=== PATIENT | male | born 1980 | race American Indian/Alaskan Native ===

== ENCOUNTER 2022-07-15 03:38 | Emergency (ER) | payer OTHER ==
[2022-07-15] MEDS ORDERED: ONDANSETRON 4 MG/2 ML INJ IV ONE (06:23)
[2022-07-15] MEDS ORDERED: FAMOTIDINE 20 MG/2 ML INJ IV ONE (06:23)
[2022-07-15] MEDS ORDERED: KETOROLAC 30 MG/1 ML INJ IV ONE (06:23)
[2022-07-15] MEDS ORDERED: SODIUM CHLORIDE 0.9% 1000 ML 1,000 ML IV ONE (06:23)
--- NOTE | 2022-07-15 06:26 | Emergency Department Report ---
HPI - General Chief Complaint: Abdominal Pain PUI?: No Time Seen by Provider: 07/15/22 06:19 - HPI HPI: 42yo M p/w b/l lower abdominal pain. Pt reports that he has a hernia and states "it popped out and I tried to push it back in. But when it popped out, that's when it started hurting." He reports having experienced nausea and vomiting. Pain to his abdomen is bilateral lower abdominal pain, intermittent, cramping. He denies any surgeries to his abdomen. Last bowel movement was 1 day ago. He states it was normal. No melena hematochezia or hematemesis. No testicular pain or penile discharge. No UTI symptoms. Pain states he had "just 1 glass of wine" last night when his pain began. Pain currently 6 out of 10. ED Past Medical Hx - Past Medical History Previous Medical History?: No - Surgical History Past Surgical History?: No - Social History Smoking Status: Current Every Day Smoker Substance Use Type: Alcohol - Medications Home Medications: Home Medications Medication Instructions Recorded Confirmed Last Taken Type Ondansetron [Zofran Odt] 4 mg PO Q8HR 3 Days #12 tab.rapdis 07/15/22 Unknown Rx ED Review of Systems ROS: Stated complaint: AB PAIN Other details as noted in HPI Comment: All other systems reviewed and negative Physical Exam - Physical Exam Vital Signs: Vital Signs 07/15/22 07/15/22 03:39 05:28 Temperature 97.8 F Pulse Rate 94 H 89 Respiratory 18 16 Rate Blood Pressure 154/96 Blood Pressure 129/73 [Left] O2 Sat by Pulse 99 98 Oximetry General: Gen: pt is well appearing, no acute distress, patient observed sleeping on stretcher, easily arousable, no drooling no stridor no respiratory distress, breathing unlabored, nontoxic-appearing HEENT: Normocephalic atraumatic pupils equally round and reactive to light extraocular muscles intact sclera anicteric Neck: Full range of motion, no midline spinal tenderness palpation, no JVD, no carotid bruits, no nuchal rigidity CVS: S1-S2 regular rate and rhythm with no gallops rubs or murmurs, chest wall nontender Pulmonary: Clear to auscultation bilaterally, no wheezes rales or rhonchi Abdomen: Soft nondistended nontender no guarding or rebound tenderness, no palpable deformities or step-offs, normal active bowel sounds, no hepatosplenomegaly, no pulsatile masses : Deferred Extremities: No cyanosis no clubbing no edema, intact distal peripheral pulses, Integumentary: Skin normal, no petechia no purpura no abscess no lacerations no evidence of trauma no evidence of infection Neuro: Patient is awake alert and oriented to person place time situation, mentating well, cranial nerves II through XII intact, no focal neurodeficits, sensation grossly tact Psych: Calm cooperative, mood affect normal ED Course Vital Signs 07/15/22 07/15/22 03:39 05:28 Temperature 97.8 F Pulse Rate 94 H 89 Respiratory 18 16 Rate Blood Pressure 154/96 Blood Pressure 129/73 [Left] O2 Sat by Pulse 99 98 Oximetry - Reevaluation(s) Reevaluation #1: 07/15/22 10:55 pt is well appearing; states he has no abdominal pain and that pain is 0/10 patient's abdomen is reassessed. Is soft nondistended nontender without guardin g or rebound tenderness. Reevaluation #2: 07/15/22 12:17 Pt reassessed; he is well appearing; he tolerated PO here w/o difficulty or worsening of his symptoms. Pain is 0/10. - Consultations Consultation #1: 07/15/22 11:12am Pt seen/evaluated at his bedside by Dr. Chowdhury, science education professor general surgeon, ED Medical Decision Making - Lab Data Result diagrams: 07/15/22 07:09 07/15/22 07:09 - Radiology Data Radiology results: report reviewed - Medical Decision Making 42-year-old male presents for evaluation of lower abdominal pain. Vital signs stable. Labs reviewed. Patient is not clinically intoxicated while here. He was given analgesics here which were nonnarcotic and subsequently reports comple te resolution of his pain. CT scan findings of possibleR inguinal strangulated hernia reviewed. Case reviewed with on-call general surgeon, Dr. Chowdhury, via phone. He presented to the emergency department to evaluate the patient independently. See his documentation concerning his evaluation and management of the patient. Patient was initially offered inpatient admission but the patient declined. Therefore he would like to see the patient on business day, Sunday, July 17, 2022 in his office for reassessment to undergo preoperative assessment. This was discussed at length with the patient and the patient verbalized understanding. He underwent serial abdominal exams here and he had no reproducible abdominal tenderness to palpation and denied any recurrent abdominal pain nausea vomiting or any other symptoms. Prior to discharge the patient was given strict verbal and written return precautions. The patient verbalized understanding and agreement the plan of care. Critical Care Time: No Critical care attestation.: If time is entered above; I have spent that time in minutes in the direct care of this critically ill patient, excluding procedure time. ED Disposition Clinical Impression: Inguinal hernia Disposition: HOME / SELF CARE / HOMELESS Is pt being admited?: No Does the pt Need Aspirin: No Condition: Stable Instructions: Inguinal Hernia, Adult, [id number] Additional Instructions: You have a scheduled appointment with the surgeon, Dr. Chowdhury, on Sunday, July 17, 2022. Your appointment is scheduled for 8:30 AM. Please be sure to arrive approximately 20 to 25 minutes prior to the onset of your appointment time to f ill out any necessary paperwork in his office before your appointment time begins. Observe your symptoms very carefully. Return to the nearest emergency department as soon as possible if you have severe or worsening pain, vomiting, inability to tolerate liquids or solids, redness of your hernia site, any fever of 100.4 Fahrenheit or higher, or if any other new worrisome symptoms develop. Prescriptions: Ondansetron [Zofran Odt] 4 mg PO Q8HR 3 Days #12 tab.rapdis Referrals: PRIMARY CARE, [Primary Care Provider] - 3-5 Days AGUSTO CHOWDHURY MD [Staff Physician] - [facility] (You have a scheduled appointment on Sunday, July 17, 2022)
[2022-07-15 07:46] LABS: Basophils % (Auto) 0.3 % (0.0-1.8); Eosinophils # (Auto) 0.1 K/mm3 (0.0-0.4); Eosinophils % (Auto) 1.1 % (0.0-4.3); Hematocrit 40.9 % (35.5-45.6); Hemoglobin 13.4 gm/dl (11.8-15.2); Lymphocytes # (Auto) 1.3 K/mm3 (1.2-5.4); Lymphocytes % (Auto) 17.6 % (13.4-35.0); Mean Corpuscular HGB Conc 33 % (32-34); Mean Corpuscular Volume 80 fl (84-94); Monocytes # (Auto) 0.3 K/mm3 (0.0-0.8); Monocytes % (Auto) 4.6 % (0.0-7.3); Platelet Count 345 K/mm3 (140-440); Red Blood Count 5.15 M/mm3 (3.65-5.03); Red Cell Distribution Width 14.9 % (13.2-15.2)
[2022-07-15 08:02] LABS: Alanine Aminotransferase 10 units/L (7-56); Albumin 4.2 g/dL (3.9-5); BUN/Creatinine Ratio 10; Blood Urea Nitrogen 8 mg/dL (9-20); Calcium 8.6 mg/dL (8.4-10.2); Hemolysis Index 2
--- NOTE | 2022-07-15 10:19 | Cat Scan Report ---
CT abdomen pelvis w con INDICATION / CLINICAL INFORMATION: b/l lower abdominal pain, reports hx of hernia. TECHNIQUE: Axial CT images were obtained through the abdomen and pelvis after 100 cc of Omnipaque [address] scans at this location are performed using CT dose reduction for ALARA by means of automated exposure control. COMPARISON: None available. FINDINGS: LOWER CHEST: No significant abnormality LIVER: Suspected hepatic steatosis. GALLBLADDER/BILIARY TREE: No significant abnormality PANCREAS: No significant abnormality SPLEEN: No significant abnormality ADRENALS: No significant abnormality RIGHT KIDNEY / URETER: No significant abnormality LEFT KIDNEY / URETER: No significant abnormality URINARY BLADDER: No significant abnormality REPRODUCTIVE ORGANS: No significant abnormality STOMACH / BOWEL: There is mild segmental mural thickening and inflammation involving the small bowel in the central abdomen. No evidence of small bowel obstruction. The colon is unremarkable. The append ix is normal in caliber. LYMPH NODES: No significant adenopathy. VASCULATURE: No significant abnormality. OTHER: No free air, free fluid, or focal fluid collection is identified. There is soft tissue strandi ng and trace fluid in a small left inguinal hernia. SKELETAL SYSTEM: No acute osseous findings. Chronic pars defects at L5 without significant listhesis. IMPRESSION: 1. Mild segmental mural thickening and inflammation involving the small bowel in the central abdomen, suspicious for enteritis. 2. Soft tissue stranding and trace fluid involving a small left internal hernia. This is nonspecific but cannot exclude strangulation. 3. Other incidental findings as above. Signer Name: Morteza Babin MD Signed: 07/15/2022 10:15 AM Workstation Name: [id number]
[2022-07-15 13:13] VITALS: BP 134/72
== END 2022-07-15 13:12 | disposition home or self-care (01) ==
LOC: ED 03:38
DX: K40.90 Unilateral inguinal hernia, without obstruction or gangrene, not specified as recurrent (principal); F17.200 Nicotine dependence, unspecified, uncomplicated
CPT/HCPCS: 36415; 74177; 80053; 83690; 85025; 96361; 96374; 96375; 99284; J1885; J2405; J3490; J7030; Q9967; 80320; G0480

== ENCOUNTER 2022-08-01 22:36 | Emergency (ER) | payer OTHER ==
[2022-08-02] MEDS ORDERED: HYDROcodone/ACETAMINOPHEN 5-325 MG TAB PO ONE (04:05)
--- NOTE | 2022-08-02 04:09 | Emergency Department Report ---
ED General Adult HPI - General Chief complaint: Abdominal Pain Stated complaint: HERNIA Time Seen by Provider: 08/02/22 02:32 Source: patient Mode of arrival: Ambulatory Limitations: No Limitations - History of Present Illness Initial comments: 42-year-old male with past medical history of left inguinal hernia reports to the ER with complaints of left inguinal hernia pain. Patient reports 2 days ago he had to slide back in. But reports today that it has come out and he is unable to reduce his hernia. No abdominal pain. No change in bowel movements. No nausea no vomiting. - Related Data Previous Rx's Medication Instructions Recorded Last Taken Type Ondansetron [Zofran Odt] 4 mg PO Q8HR 3 Days #12 tab.rapdis 07/15/22 Unknown Rx Ibuprofen [Motrin] 800 mg PO Q8HR PRN 6 Days #18 08/02/22 Unknown Rx tablet Allergies Allergy/AdvReac Type Severity Reaction Status Date / Time haloperidol [From Haldol] Allergy Swelling Verified 08/01/22 23:05 ED Review of Systems ROS: Stated complaint: HERNIA Other details as noted in HPI Comment: All other systems reviewed and negative Gastrointestinal: abdominal pain. denies: nausea, vomiting, diarrhea ED Past Medical Hx - Past Medical History Previous Medical History?: Yes - Social History Smoking Status: Current Every Day Smoker Substance Use Type: Alcohol - Medications Home Medications: Home Medications Medication Instructions Recorded Confirmed Last Taken Type Ondansetron [Zofran Odt] 4 mg PO Q8HR 3 Days #12 tab.rapdis 07/15/22 Unknown Rx Ibuprofen [Motrin] 800 mg PO Q8HR PRN 6 Days #18 08/02/22 Unknown Rx tablet ED Physical Exam - General Limitations: No Limitations General appearance: alert, in no apparent distress - Head Head exam: Present: atraumatic, normocephalic - Eye Eye exam: Present: normal appearance - ENT ENT exam: Present: mucous membranes moist - Neck Neck exam: Present: normal inspection - Respiratory Respiratory exam: Present: normal lung sounds bilaterally. Absent: respiratory distress - Cardiovascular Cardiovascular Exam: Present: regular rate, normal rhythm. Absent: systolic murmur, diastolic murmur, rubs, gallop - GI/Abdominal GI/Abdominal exam: Present: soft, tenderness, normal bowel sounds, hernia (Left inguinal hernia present, hernia was reducible. No gangrene noted). Absent: distended, guarding - Rectal Rectal exam: Present: deferred - Extremities Exam Extremities exam: Present: normal inspection - Back Exam Back exam: Present: normal inspection - Neurological Exam Neurological exam: Present: alert, oriented X3 - Psychiatric Psychiatric exam: Present: normal affect, normal mood - Skin Skin exam: Present: warm, dry, intact, normal color. Absent: rash ED Course Vital Signs 08/01/22 08/02/22 23:01 04:29 Temperature 99.0 F Pulse Rate 69 71 Respiratory 18 12 Rate Blood Pressure 146/94 142/96 [Right] O2 Sat by Pulse 99 100 Oximetry ED Medical Decision Making - Medical Decision Making 42-year-old male with past medical history of left inguinal hernia reports to the ER with complaints of left inguinal hernia pain. Patient reports 2 days ago he had to slide back in. But reports today that it has come out and he is unable to reduce his hernia. No abdominal pain. No change in bowel movements. No nausea no vomiting. On physical exam patient has a left inguinal hernia. Nonincarcerated Gangrene. Left inguinal hernia was reducible. Patient received oral pain medicine here in the ER. Patient informed to follow his primary care provider. Patient informed to get a hernia belt to prevent hernia from coming out. Patient agrees with plan of care and verbalized understanding. Patient stable for discharge. Vital Signs 08/01/22 08/02/22 23:01 04:29 Temperature 99.0 F Pulse Rate 69 71 Respiratory 18 12 Rate Blood Pressure 146/94 142/96 [Right] O2 Sat by Pulse 99 100 Oximetry Critical care attestation.: If time is entered above; I have spent that time in minutes in the direct care of this critically ill patient, excluding procedure time. ED Disposition Clinical Impression: Inguinal hernia Qualifiers: Obstruction and gangrene presence: without obstruction or gangrene Laterality: unilateral Recurrence: recurrent Qualified Code(s): K40.91 - Unilateral inguinal hernia, without obstruction or gangrene, recurrent Disposition: 01 HOME / SELF CARE / HOMELESS Is pt being admited?: No Condition: Stable Instructions: Inguinal Hernia, Adult, [id number], Hernia, Adult Additional Instructions: Please look into investing in a hernia belt for the groin area. Follow-up with your primary care provider for management of your inguinal hernia. Prescriptions: Ibuprofen [Motrin] 800 mg PO Q8HR PRN 6 Days #18 tablet PRN Reason: Pain , Severe (7-10) Referrals: HOANG GALDAMEZ MD [Primary Care Provider] - 3-5 Days
[2022-08-02 04:30] VITALS: BP 142/96
== END 2022-08-02 05:01 | disposition home or self-care (01) ==
LOC: ED 22:36
DX: K40.91 Unilateral inguinal hernia, without obstruction or gangrene, recurrent (principal); F17.200 Nicotine dependence, unspecified, uncomplicated; F10.20 Alcohol dependence, uncomplicated
CPT/HCPCS: 99282

== ENCOUNTER 2022-08-07 23:28 | Emergency (ER) | payer OTHER ==
[2022-08-08 06:00] LABS: Basophils % (Auto) 0.7 % (0.0-1.8); Eosinophils # (Auto) 0.6 K/mm3 (0.0-0.4); Eosinophils % (Auto) 12.2 % (0.0-4.3); Hematocrit 40.5 % (35.5-45.6); Hemoglobin 13.1 gm/dl (11.8-15.2); Lymphocytes # (Auto) 1.6 K/mm3 (1.2-5.4); Lymphocytes % (Auto) 33.8 % (13.4-35.0); Mean Corpuscular HGB Conc 33 % (32-34); Mean Corpuscular Volume 79 fl (84-94); Monocytes # (Auto) 0.3 K/mm3 (0.0-0.8); Monocytes % (Auto) 6.9 % (0.0-7.3); Platelet Count 294 K/mm3 (140-440); Red Blood Count 5.12 M/mm3 (3.65-5.03); Red Cell Distribution Width 14.3 % (13.2-15.2)
[2022-08-08 06:25] LABS: Alanine Aminotransferase 11 units/L (7-56); Albumin 4.2 g/dL (3.9-5); BUN/Creatinine Ratio 12; Blood Urea Nitrogen 13 mg/dL (9-20); Calcium 8.7 mg/dL (8.4-10.2); Hemolysis Index 11
[2022-08-08] MEDS ORDERED: INSULIN REGULAR, HUMAN 100 UNITS/1 ML SUB-Q ONE (06:30)
--- NOTE | 2022-08-08 06:38 | Emergency Department Report ---
ED General Adult HPI - General Chief complaint: Abdominal Pain Stated complaint: HERNIA DROP Time Seen by Provider: 08/08/22 06:11 Source: patient Mode of arrival: Ambulatory Limitations: No Limitations - History of Present Illness Initial comments: This is a 42-year-old male with medical history of diabetes with insulin is that he has been out of his insulin medication for the past 2 days came in today with concerns of elevated glucose and also groin discomfort which patient said that he has a hernia. Patient said that he feels that his hernia is going up and down when he stands and sits down; which is causing him to be uncomfortable. The patient has been going for the past 1 month. Patient denies any other symptoms. Patient denies fever chill night sweat dizziness blurred vision lightheadedness headache tinnitus ear pain runny nose sore throat loss of taste loss of smell chest pain palpitation short breath cough abdominal pain nausea v omiting diarrhea constipation joint pain muscle pain new rash and heat or cold intolerance. Severity scale (0 -10): 0 - Related Data Previous Rx's Medication Instructions Recorded Last Taken Type Ondansetron [Zofran Odt] 4 mg PO Q8HR 3 Days #12 tab.rapdis 07/15/22 Unknown Rx Ibuprofen [Motrin] 800 mg PO Q8HR PRN 6 Days #18 08/02/22 Unknown Rx tablet Allergies Allergy/AdvReac Type Severity Reaction Status Date / Time haloperidol [From Haldol] Allergy Swelling Verified 08/01/22 23:05 ED Review of Systems ROS: Stated complaint: HERNIA DROP Other details as noted in HPI Comment: All other systems reviewed and negative Constitutional: no symptoms reported Eyes: as per HPI ENT: as per HPI Respiratory: no symptoms reported, see HPI Cardiovascular: as per HPI Endocrine: no symptoms reported, see HPI Gastrointestinal: as per HPI Genitourinary: other (Right groin hernia.) Musculoskeletal: as per HPI Skin: as per HPI Neurological: as per HPI Psychiatric: as per HPI Hematological/Lymphatic: as per HPI ED Past Medical Hx - Past Medical History Previous Medical History?: Yes Hx Diabetes: Yes - Social History Smoking Status: Unknown if ever smoked - Medications Home Medications: Home Medications Medication Instructions Recorded Confirmed Last Taken Type Ondansetron [Zofran Odt] 4 mg PO Q8HR 3 Days #12 tab.rapdis 07/15/22 Unknown Rx Ibuprofen [Motrin] 800 mg PO Q8HR PRN 6 Days #18 08/02/22 Unknown Rx tablet ED Physical Exam - General Limitations: No Limitations General appearance: alert, in no apparent distress (Patient is asleep.) - Head Head exam: Present: atraumatic, normocephalic, normal inspection - Eye Eye exam: Present: normal appearance, PERRL, EOMI Pupils: Present: normal accommodation - ENT ENT exam: Present: normal exam, mucous membranes moist - Neck Neck exam: Present: normal inspection, full ROM - Respiratory Respiratory exam: Present: normal lung sounds bilaterally - Cardiovascular Cardiovascular Exam: Present: regular rate, normal rhythm, normal heart sounds - GI/Abdominal GI/Abdominal exam: Present: soft, mass (In the right groin region that is palpable and seems to be reducible) - Extremities Exam Extremities exam: Present: normal inspection, full ROM, normal capillary refill - Back Exam Back exam: Present: normal inspection, full ROM - Neurological Exam Neurological exam: Present: alert, oriented X3, CN II-XII intact - Psychiatric Psychiatric exam: Present: normal affect, normal mood - Skin Skin exam: Present: normal color ED Course Vital Signs 08/08/22 08/08/22 08/08/22 00:32 05:36 06:55 Temperature 99 F 98.0 F Pulse Rate 70 80 56 L Respiratory 20 15 13 Rate Blood Pressure 127/75 Blood Pressure 163/100 [Right] O2 Sat by Pulse 99 98 99 Oximetry 08/08/22 08/08/22 08/08/22 07:00 08:40 08:46 Temperature Pulse Rate 55 L Respiratory 14 Rate Blood Pressure 135/85 Blood Pressure [Right] O2 Sat by Pulse 98 98 97 Oximetry ED Medical Decision Making - Lab Data Result diagrams: 08/08/22 05:50 08/08/22 08:44 - Medical Decision Making FAT INGUINAL HERNIA WITH NO BOWEL INVOLVEMENT AND GOOD BLOOD FLOW; NO STRANGULATION/INCARCERATION. GLUCOSE DOWN AFTER INSULIN. INFORMED TO FOLLOW UP WITH PCP WITHIN 3 DAYS AND SURGEON WELL. Critical care attestation.: If time is entered above; I have spent that time in minutes in the direct care of this critically ill patient, excluding procedure time. ED Disposition Clinical Impression: Inguinal hernia, Hyperglycemia Disposition: 01 HOME / SELF CARE / HOMELESS Is pt being admited?: No Does the pt Need Aspirin: No Condition: Stable Instructions: Inguinal Hernia, Adult, [id number], Hyperglycemia Additional Instructions: MAKE A FOLLOW UP APPOINTMENT WITH PRIMARY CARE PROVIDER OF YOUR CHOICE TO BE SEEN WITHIN 3 DAYS. ALSO FOLLOW UP WITH GENERAL SURGEON FOR FURTHER EVALUATION. Referrals: PRIMARY CARE, [Primary Care Provider] - 3-5 Days AGUSTO REED MD [Staff Physician] - 3-5 Days Forms: Work/School Release Form(ED) Time of Disposition: 09:37
--- NOTE | 2022-08-08 08:06 | Ultrasound Report ---
ULTRASOUND SCROTUM TECHNIQUE: Grayscale ultrasound with color Doppler imaging COMPARISON: CT abdomen pelvis with contrast 07/15/2022. HISTORY: Groin hernia, pain, question strangulation/incarceration FINDINGS: Targeted ultrasound was performed in the left groin region at the site of the abnormality. The images demonstrate left inguinal hernia measuring up to 1.6 cm in diameter. This appears to repre sent mesenteric fat. No convincing peristalsing bowel loops are appreciated on ultrasound. There is p ositive flow on color Doppler imaging. IMPRESSION: Probable left inguinal hernia containing fat as described. If further characterization is needed CT w ith or without contrast should provide the most information. Signer Name: Lincoln Sutton Jr, MD Signed: 08/08/2022 8:02 AM Workstation Name: [id number]
[2022-08-08 08:52] VITALS: BP 135/85
[2022-08-08 09:28] LABS: BUN/Creatinine Ratio 11; Blood Urea Nitrogen 11 mg/dL (9-20); Hemolysis Index 4
== END 2022-08-08 10:03 | disposition home or self-care (01) ==
LOC: ED 23:28
DX: K40.90 Unilateral inguinal hernia, without obstruction or gangrene, not specified as recurrent (principal); E11.65 Type 2 diabetes mellitus with hyperglycemia; Z91.09 Other allergy status, other than to drugs and biological substances
CPT/HCPCS: 36415; 80048; 80053; 82962; 85025; 96372; 99284; Q9967; J1815

== ENCOUNTER 2022-08-08 20:37 | Emergency (ER) | payer OTHER ==
[2022-08-08] MEDS ORDERED: ONDANSETRON 4 MG ODT TAB PO ONE (20:59)
--- NOTE | 2022-08-09 05:55 | Emergency Department Report ---
ED General Adult HPI - General Chief complaint: Nausea/Vomiting/Diarrhea Stated complaint: FOOD POISON Source: patient Mode of arrival: Ambulatory Limitations: No Limitations - History of Present Illness Initial comments: Patient 42-year-old male with hypertension and diabetes Beatties type II. Who presents for nausea vomiting diarrhea on yesterday x3 episodes. Last nausea vo miting was yesterday. Last p.o. intake was now. Patient denies symptoms at this time advised symptoms are resolved. Patient has history of hypertension. Diabetes type 2. CVA. Patient denies fevers or chills no lightheaded or dizziness. No back pain no shortness of breath or chest pain. Patient denies other symptoms. Patient is tolerating p.o. intake at this time without nausea or vomiting. - Related Data Previous Rx's Medication Instructions Recorded Last Taken Type Ondansetron [Zofran Odt] 4 mg PO Q8HR 3 Days #12 tab.rapdis 07/15/22 Unknown Rx Ibuprofen [Motrin] 800 mg PO Q8HR PRN 6 Days #18 08/02/22 Unknown Rx tablet Ondansetron [Zofran Odt] 4 mg PO Q8HR PRN #12 tab.rapdis 08/09/22 Unknown Rx Allergies Allergy/AdvReac Type Severity Reaction Status Date / Time haloperidol [From Haldol] Allergy Swelling Verified 08/01/22 23:05 ED Review of Systems ROS: Stated complaint: FOOD POISON Other details as noted in HPI Constitutional: denies: chills, fever, malaise Eyes: denies: eye pain, eye discharge, vision change ENT: denies: ear pain, throat pain Respiratory: denies: cough, shortness of breath, wheezing Cardiovascular: denies: chest pain, palpitations Endocrine: no symptoms reported Gastrointestinal: nausea, vomiting. denies: abdominal pain, diarrhea, melena Genitourinary: denies: urgency, dysuria Musculoskeletal: denies: back pain, joint swelling, arthralgia Skin: denies: rash, lesions Neurological: denies: headache, weakness, paresthesias, vertigo Psychiatric: denies: anxiety, depression Hematological/Lymphatic: denies: easy bleeding, easy bruising ED Past Medical Hx - Past Medical History Previous Medical History?: Yes Hx Hypertension: Yes Hx Diabetes: Yes - Surgical History Past Surgical History?: No - Social History Smoking Status: Never Smoker Substance Use Type: None - Medications Home Medications: Home Medications Medication Instructions Recorded Confirmed Last Taken Type Ondansetron [Zofran Odt] 4 mg PO Q8HR 3 Days #12 tab.rapdis 07/15/22 Unknown Rx Ibuprofen [Motrin] 800 mg PO Q8HR PRN 6 Days #18 08/02/22 Unknown Rx tablet Ondansetron [Zofran Odt] 4 mg PO Q8HR PRN #12 tab.rapdis 08/09/22 Unknown Rx ED Physical Exam - General Limitations: No Limitations General appearance: alert, in no apparent distress - Head Head exam: Present: normocephalic, normal inspection - Eye Eye exam: Present: normal appearance, PERRL, EOMI, conjunctival injection Pupils: Present: normal accommodation - ENT ENT exam: Present: normal orophraynx, mucous membranes moist - Expanded ENT Exam Expanded Ear exam: Present: normal external inspection Mouth exam: Present: normal external inspection Teeth exam: Present: normal inspection Throat exam: Positive: normal inspection. Negative: tonsillar erythema, tonsillomegaly, tonsillar exudate, R peritonsillar mass, L peritonsillar mass - Neck Neck exam: Present: normal inspection, full ROM. Absent: tenderness, meningismus, lymphadenopathy, thyromegaly - Respiratory Respiratory exam: Present: normal lung sounds bilaterally. Absent: respiratory distress, wheezes, stridor, chest wall tenderness, accessory muscle use, prolonged expiratory - Cardiovascular Cardiovascular Exam: Present: normal rhythm, normal heart sounds. Absent: regular rate, gallop - GI/Abdominal GI/Abdominal exam: Present: soft, distended, normal bowel sounds. Absent: tend erness, guarding, rebound, rigid, mass, bruit, pulsatile mass, hernia - Rectal Rectal exam: Present: deferred - exam: Present: other (Deferred ) - Extremities Exam Extremities exam: Present: normal inspection, full ROM, normal capillary refill. Absent: tenderness - Back Exam Back exam: Present: normal inspection, full ROM, vertebral tenderness. Absent: tenderness, CVA tenderness (R), CVA tenderness (L) - Neurological Exam Neurological exam: Present: alert, oriented X3, CN II-XII intact, normal gait. Absent: motor sensory deficit - Expanded Neurological Exam Expanded Patient oriented to: Present: person, place, time Speech: Present: fluid speech Motor strength exam: RUE: 5, LUE: 5, RLE: 5, LLE: 5 Best Eye Response ([place]): (4) open spontaneously Best Motor Response ([place]): (6) obeys commands Best Verbal Response ([place]): (5) oriented [place] Lidia Total: 15 - Psychiatric Psychiatric exam: Present: normal affect, normal mood - Skin Skin exam: Present: warm, dry, intact, normal color. Absent: rash ED Course Vital Signs 08/08/22 20:58 Temperature 98.5 F Pulse Rate 74 Respiratory 18 Rate Blood Pressure 213/138 O2 Sat by Pulse 97 Oximetry ED Medical Decision Making - Medical Decision Making Patient tolerated p.o. challenge without nausea vomiting. Labs and symptoms are resolved there is no fevers no chills no nausea no vomiting no headache no dizziness no lightheadedness. Plan DC to home, follow-up with primary care doctor in 2 to 3 days. Return to emergency department should symptoms worsen. Patient verbalized agreement and understanding with discharge plan. Patient DC'd home in stable condition at this time. Critical care attestation.: If time is entered above; I have spent that time in minutes in the direct care of this critically ill patient, excluding procedure time. ED Disposition Clinical Impression: Nausea vomiting and diarrhea Disposition: HOME / SELF CARE / HOMELESS Is pt being admited?: No Does the pt Need Aspirin: No Condition: Stable Instructions: Nausea and Vomiting, Adult, [id number], Probiotics Additional Instructions: Take medications as prescribed, hydrate as directed, follow-up with your doctor in 2 to 3 days. Return to emergency department should symptoms worsen. Prescriptions: Ondansetron [Zofran Odt] 4 mg PO Q8HR PRN #12 tab.rapdis PRN Reason: Nausea Referrals: HOANG GALDAMEZ MD [Staff Physician] - 3-5 Days Forms: Work/School Release Form(ED) Time of Disposition: 06:17
[2022-08-09 06:53] VITALS: BP 158/92
== END 2022-08-09 06:54 | disposition home or self-care (01) ==
LOC: ED 20:37
DX: R11.2 Nausea with vomiting, unspecified (principal); R19.7 Diarrhea, unspecified; I10 Essential (primary) hypertension; E11.9 Type 2 diabetes mellitus without complications; Z88.8 Allergy status to other drugs, medicaments and biological substances
CPT/HCPCS: 99282; J3490; Q0162